=== PATIENT | male | born 1940 | race Caucasian/White ===

== ENCOUNTER 2025-05-23 12:13 | Emergency (ER) | payer MEDICARE, OTHER, SELFPAY ==
[2025-05-23 12:23] VITALS: BP 151/82; PULSE 65; RESP 14; TEMP 36.2; O2SAT 96; BMI 26.5
--- NOTE | 2025-05-23 12:41 | ED.GENADULT ---
HPI - General Adult General Chief complaint: Laceration/Wound Stated complaint: Rt arm wound Needs changing dressing Time Seen by Provider: 05/23/25 12:14 Source: patient Mode of arrival: ambulatory Limitations: no limitations History of Present Illness HPI narrative: 84-year-old male presenting today requesting assistance with wound dressing. Patient states that about a week ago he fell onto his arm suffering superficial abrasion for a large part of the lower arm. He has gotten 3 dressing changes since. He states that he was told he could continue doing self dressing changes but he states that he is unable to do this. Patient is visiting from [place]. He plans on going to [place] soon, he does not know when he is leaving however. He is otherwise doing well, has no other concerns. Related Data Home Medications ?Medication ?Instructions ?Recorded ?Confirmed amlodipine 10 mg tablet 10 mg PO DAILY 05/23/25 05/23/25 atorvastatin 40 mg tablet 40 mg PO DAILY 05/23/25 05/23/25 empagliflozin 25 mg tablet 12.5 mg PO DAILY 05/23/25 05/23/25 levothyroxine 150 mcg tablet 150 mcg PO DAILY 05/23/25 05/23/25 (Levo-T) losartan 25 mg tablet (Cozaar) 25 mg PO DAILY 05/23/25 05/23/25 sildenafil 100 mg tablet 100 mg PO DAILY PRN 05/23/25 05/23/25 sitagliptin 50 mg tablet 50 mg PO DAILY 05/23/25 05/23/25 Allergies Allergy/AdvReac Type Severity Reaction Status Date / Time No Known Drug Allergies Allergy Verified 05/23/25 12:22 Review of Systems Status of ROS: Reports: 6 or more systems reviewed and unremarkable except as noted in History and below Exam Narrative: Exam Narrative: Well-nourished well-developed elderly patient in no acute distress. Alert and oriented. Answers questions appropriately. Mood and affect are appropriate. Thoughts are goal oriented and rational. No tangential or magical thinking noted. Patient speaks in full sentences without needing to catch his breath. HEENT: Normocephalic atraumatic. Pupils are equally round reactive to light. Extraocular muscles are intact. Conjunctivae are moist without any icterus noted. Moist mucous membranes. Extremities: Patient has an abrasion of the right proximal posterior forearm about the size of a palm of the hand, another smaller abrasion of the posterior mid forearm that is a few cm long approximately 2 cm wide. The area does not appear infected. Const: Vital Signs, click to edit/add: Vital Signs - 24 hr 05/23/25 12:23 Temperature 97.1 F L Pulse Rate [Pulse Oximeter] 65 Respiratory Rate 14 Blood Pressure [Ri ght Upper Arm] 151/82 H Pulse Oximetry 96 Oxygen Delivery Me thod Room Air Course Course ED Course: Nursing was able to clean the wounds and re-dress. Will be staying in [place] for the next 6 months. He cannot change his wound dressings without assistance. information services vice president was consulted. Home health paperwork was filled out. Vital Signs Vital signs: Initial Vital Signs Temperature 97.1 F L 05/23/25 12:23 Temperature Source Temporal Artery Scan 05/23/25 12:23 Pulse Rate 65 05/23/25 12:23 Pulse Rhythm Regular 05/23/25 12:23 Respiratory Rate 14 05/23/25 12:23 Blood Pressure 151/82 H 05/23/25 12:23 Blood Pressure Mean 105 05/23/25 12:23 Blood Pressure Position Sitting 05/23/25 12:23 Pulse Oximetry 96 05/23/25 12:23 Oxygen Delivery Method Room Air 05/23/25 12:23 Vital Signs Temperature 97.1 F L 05/23/25 12:23 Pulse Rate 65 05/23/25 12:23 Respiratory Rate 14 05/23/25 12:23 Blood Pressure 151/82 H 05/23/25 12:23 Pulse Oximetry 96 05/23/25 12:23 Oxygen Delivery Method Room Air 05/23/25 12:23 Temperature 97.1 F L 05/23/25 12:23 Pulse Rate 65 05/23/25 12:23 Respiratory Rate 14 05/23/25 12:23 Blood Pressure 151/82 H 05/23/25 12:23 Pulse Oximetry 96 05/23/25 12:23 Oxygen Delivery Method Room Air 05/23/25 12:23 Medical Decision Making MDM Narrative Medical decision making narrative: 84-year-old male with large abrasions to the forearm, requiring assistance with dressing changes. Discharge Plan Discharge Clinical Impression: Abrasion Patient Disposition: Home, Self-Care Condition: Stable Additional Instructions: Will arrange for home health to provide every other day dressing changes. You need to establish care with a primary care provider to have a wound recheck in approximately 7-10 days. Prescriptions: No Action levothyroxine [Levo-T] 150 mcg tablet 150 mcg PO DAILY sitagliptin 50 mg tablet 50 mg PO DAILY atorvastatin 40 mg tablet 40 mg PO DAILY amlodipine 10 mg tablet 10 mg PO DAILY losartan [Cozaar] 25 mg tablet 25 mg PO DAILY sildenafil 100 mg tablet 100 mg PO DAILY PRN Rx Instructions: administer 30 minutes to 4 hours before activity empagliflozin 25 mg tablet 12.5 mg PO DAILY Follow Up/Referrals: Provider,Not a Local [Primary Care Provider, Family Practice] Stand Alone Forms: [employer] Info Instructions
--- NOTE | 2025-05-23 15:35 | PC.SOCIAL ---
Social work consult: washhouse worker received a consult for the pt for a longterm home care referral for wound care/dressing changes. washhouse worker sent the referral to [facility]. who will let this worker know in the morning if they are able to accept the pt. They need to check the pt's insurance and the staff member that checks insurance at [facility] is gone for the day. [facility] to the hospital can see the pt starting this Wednesday the at 9:15am and every Wednesday after that, so the pt would need longterm home care on Mondays and Fridays. Pt is originally from [place] and is currently staying with his ejwetwo-vq-awo in [place], [place] for an unknown amount of time. Pt originally stated to this worker that he would be open to longterm home care, but then told the ED nurse during his discharge that a nurse could not come into his lnjecir-tj-jov's home because the pzcfuvw-cx-igk would not allow it. washhouse worker reached out to pt's daughter, Renetta, who lives in [place] and explained the situation and asked for her assistance with encouraging the pt to follow through with the proposed regimen for his wound. Pt's daughter will get back to this worker after she talks to the pt and her uncle(pt's pyqywig-fx-hbj with whom he is currently staying with). Pt's daughter, Renetta, has this worker's contact information for follow-up. This clinical social worker has also been in contact with Jaimie from [facility] about pt's plan to go to [facility] for follow-up with his bandage changes, as well. Social work to follow-up as needed.
--- NOTE | 2025-05-23 16:38 | PC.SOCIAL ---
Social work consult: food production worker received a consult for the pt for a longterm home care referral for wound care/dressing changes. food production worker sent the referral to [facility]. who will let this worker know in the morning if they are able to accept the pt. They need to check the pt's insurance and the staff member that checks insurance at [facility] is gone for the day. [facility] hospital can see the pt starting this Wednesday the at 9:15am and every Wednesday after that, so the pt would need longterm home care on Mondays and Wednesdays. Pt is originally from [place] and is currently staying with his [id number]-xff in [place], [place] for an unknown amount of time. Pt originally stated to this worker that he would be open to longterm home care, but then told the ED nurse during his discharge that a nurse could not come into his rvgdqtx-vl-tor's home because the pxonjoq-tk-cda would not allow it. food production worker reached out to pt's daughter, Renetta, who lives in [place] and explained the situation and asked for her assistance with encouraging the pt to follow through with the proposed regimen for his wound care. Pt's daughter will get back to this worker after she talks to the pt and her uncle(pt's xucgluk-ih-soj with whom pt is currently staying with). Pt's daughter, Renetta, has this worker's contact information for follow-up. This psych social worker has also been in contact with Jaimie from [facility] about pt's plan to go to [facility] for follow-up with his wound care bandage changes, as well. Social work to follow-up as needed.
--- NOTE | 2025-05-24 10:14 | PC.SOCIAL ---
Social work consult: air brake worker received a message from pt's daughter, Renetta, that the pt plans to attend his appointment at [facility] on Wednesday at 9:15am. air brake worker will let Jaimie at [facility] know, as well. air brake worker is still waiting to hear back from Jenny at [facility]. on whether or not they can accept the pt's insurance for services. Social work to follow-up as needed.
--- NOTE | 2025-05-25 11:43 | PC.SOCIAL ---
Addendum entered by LAVERNE Hernandes 05/25/25 15:08: Social work note: immigration case worker spoke to the pt this afternoon at phone number #[phone] and he stated that home care is not going to work for him and he needs to do outpatient appointments. Pt states that he is staying at his fztwhzc-za-ltb's house in [place], [place] and his jgntxow-qj-rqo will not allow providers into his home, so the pt will need to do clinic appointments and he is fine with driving to these appointments. immigration case worker notified Jaimie at [facility] and she will talk to the provider at [facility] about this issue. Social work will not look for home care services if the pt is going to refuse the service coming into his aajetke-bi-zams home. Social work to follow-up as needed. Addendum entered by LAVERNE Hernandes 05/25/25 13:30: Social work note: immigration case worker heard back from [facility]. and they stated that the pt is out of their service area so they have to decline the referral. Social work will continue to follow-up with Jenny at [facility]. Social work to follow-up as needed. Original Note: Social work note: [facility] and this worker was informed by Jaimie in [facility] that the pt will need still need dressing changes on Mondays and Wednesdays and then continue to be seen in [facility] weekly on Fridays. Jaimie stated to this worker that [facility] believes that the pt meets homebound criteria because of his cognition. This worker then followed up with Jenny at [facility]. to relay this message. Jenny is hesitant about accepting the pt for home care because she is concerned that he does not meet homebound status criteria, even though home care orders were filled out by the physician in the ED on 05/23/25 and [facility] staff also believe he meets criteria for homebound status because of his cognition. Jenny states that she has to hear from the pt that he will remain homebound, but cannot get a hold of him via phone. Jenny did talk to pt's daughter, Renetta, but she also said that she needs to talk to the pt directly to ensure he will remain homebound. immigration case worker also faxed the referral to [facility] at fax number #[phone] and will wait to hear from them on if they can accept. Social work to follow-up as needed.
== END 2025-05-23 14:31 | disposition home or self-care (01) ==
PROVIDERS: Emergency Provider Family Medicine
DX: Z48.00 Encounter for change or removal of nonsurgical wound dressing (principal); S50.811D Abrasion of right forearm, subsequent encounter
CPT/HCPCS: 99281; 99282; 99284